=== PATIENT | male | born 1975 | race Caucasian/White ===

== ENCOUNTER 2024-10-29 17:38 | Emergency (ER) | payer SELFPAY ==
[2024-10-29 17:45] VITALS: BP 128/84
--- NOTE | 2024-10-29 18:18 | ED.GENMED ---
History of Present Illness
General
Chief Complaint: Crisis Evaluation
Source: patient
Exam Limitations: none
Time Seen by Provider: 10/29/24 18:05
Nursing documentation reviewed up to this point in time: agreed with
History of Present Illness
History of Present Illness:
Patient is a 49-year-old with past medical history of anxiety depression presents to the ER for evaluation. Patient reports he has struggled with intermittent depression however he has never been evaluated by psychiatry or therapy. He was on
antidepressant medicine over 20 years ago. He reports this week and he had a very rough weekend and did have thoughts of harming himself. He did not have a plan. He does not feel suicidal now. He was brought by sister who tried to get him
appointment this family doctor tomorrow however she recommended he come to the ER.
He is willing to get help.
Review of Systems
Review of Systems
Allergies reviewed?: Yes
Constitutional: Reports no symptoms
Respiratory: Reports no symptoms
Cardiac: Reports no symptoms
ABD/GI: Reports no symptoms
: Reports no symptoms
Musculoskeletal: Reports no symptoms
Skin: Reports no symptoms
Neurological: Reports no symptoms
Psychiatric: Reports suicidal (has recently felt suicidal denies now )
Phy Exam
General Physical Exam
General Presentation: no apparent distress
General age: appears stated age
General Skin: warm and dry
General Habitus: normal
General Mental: alert
General Hydration: appears well hydrated
Cardiovascular Exam
Cardiovascular Exam: regular rate/rhythm, no murmur and normal peripheral pulses
Pulmonary Exam
Pulmonary Exam: lungs clear and no respiratory distress
Neurological Exam
Neurological Exam: alert and oriented x3
Musculoskeletal Exam
Musculoskeletal Exam: full ROM
Skin Exam
Skin Exam: normal color and warm/dry
Psychiatric Exam
Psychiatric Exam: other (flat depressed affect; tearful )
Course
Orders/Labs/Results
Orders:
Orders
10/29/24 17:39
1:1 Observation - Suicide/ Violent Behavior As Directed
Crisis Consult Urgent
Reason for Consult: SI, no plan
Vital Signs
Initial and Last Documented VS:
Initial Vital Signs
Temp Pulse Resp BP Pulse Ox
98.1 F 94 20 128/84 97
10/29/24 17:45 10/29/24 17:45 10/29/24 17:45 10/29/24 17:45 10/29/24 17:45
Last Documented Vital Signs
Temp Pulse Resp BP Pulse Ox
98.1 F 94 20 128/84 97
10/29/24 17:45 10/29/24 17:45 10/29/24 17:45 10/29/24 17:45 10/29/24 17:45
MDM/Problems Addressed
Differential Diagnosis Includes:
not limited to:depression
MDM/Problems Addressed:
Patient is a 49-year-old male who has a history of depression has had intermittent suicidal thoughts. He currently denies suicidal plan presently. He has a history of depression, however does not have a psychiatrist or therapist. He was eval by
[facility]. He did contract for safety. As per crisis he does have firearms in the house and sister was going to assist with keeping these locked and away. They did give patient outpatient resources for therapy and outpatient treatment plan.
Patient no physical complaints.
*Pulse Oximetry
Patient hypoxic: no
*Critical Care Note
Total Time (30-74mins, 75-104mins- exclusive of procedures): Not Applicable
ED Attending Note
-
Portions of this chart may have been created with voice recognition software.� Occasional wrong word or��sound alike� substitutions may have occurred due to the inherent limitations of voice recognition software.
Discharge Plan
Departure
Patient Disposition: [facility]
Date of Disposition: 10/29/24
Time of Disposition: 20:09
Patient with high blood pressure during this ER visit?: No
Condition: Fair
Covid-19: Not Applicable
Discharge Problem:
Depression
Referrals:
UNKNOWN,NO INTERVIEW [Family Provider] -
Interventions
Interventions:
*Risk Screen - Suicide Last Done: 10/29/24 17:39
*General Assessment Last Done: 10/29/24 17:45
ED-Psychological Assessment Last Done: 10/29/24 18:06
Discharge Date and Time
Print Language: ICELANDIC
== END 2024-10-29 20:35 ==
LOC: EMR 17:38
PROVIDERS: EMERGENCY PHYSICIAN Emergency Medicine
DX: F32.A Depression, unspecified (principal); R45.851 Suicidal ideations; F41.9 Anxiety disorder, unspecified; I10 Essential (primary) hypertension; D68.00 Von Willebrand disease, unspecified
CPT/HCPCS: 99283